=== PATIENT | female | born 1990 | race Caucasian/White ===

== ENCOUNTER 2019-01-26 17:17 | Emergency (ER) | payer SELFPAY ==
--- NOTE | 2019-01-26 18:46 | ER Document Report ---
Addendum entered and electronically signed by JANNIE OVIEDO PA-C 01/26/19 18:48: ED Medical Screen (RME) - General Chief Complaint: Flank Pain Stated Complaint: FLANK PAIN Time Seen by Provider: 01/26/19 18:31 Primary Care Provider: TU PICHARDO [Primary Care Provider] - Follow up as needed Notes: Patient has had 8-10 episodes of diarrhea today, initially they were bloody but they are no longer bloody. TRAVEL OUTSIDE OF THE [place] IN LAST 30 DAYS: No - Related Data Allergies/Adverse Reactions: No Known Allergies Allergy (Verified 01/26/19 17:19) Original Note: ED Medical Screen (RME) - General Chief Complaint: Flank Pain Stated Complaint: FLANK PAIN Time Seen by Provider: 01/26/19 18:31 Primary Care Provider: TU PICHARDO [Primary Care Provider] - Follow up as needed Notes: 20-year-old female diagnosed with ulcerative colitis 2 years ago presents to the emergency department for which she thinks is a flareup. She complains of severe right sided pain, nausea, diarrhea that started today. She called her primary doctor at 4 PM today come to the emergency department. She denies fevers, chills, vomiting. EXAM: Lungs clear to auscultation bilaterally; regular rate and rhythm no murmur I have greeted and performed a rapid initial assessment of this patient. A comprehensive ED assessment and evaluation of the patient, analysis of test results and completion of medical decision making process will be conducted by an additional ED providers. TRAVEL OUTSIDE OF THE [place] IN LAST 30 DAYS: No - Related Data Allergies/Adverse Reactions: No Known Allergies Allergy (Verified 01/26/19 17:19) Past Medical History - Social History Chew tobacco use (# tins/day): No Drug Abuse: None Renal/ Medical History: Denies: Hx Peritoneal Dialysis - Immunizations Hx Diphtheria, Pertussis, Tetanus Vaccination: No Physical Exam - Vital signs Vitals: Temp Pulse Resp BP Pulse Ox 99.4 F 86 18 119/62 99 01/26/19 17:33 01/26/19 17:33 01/26/19 17:33 01/26/19 17:33 01/26/19 17:33 Course - Vital Signs Vital signs: Temp Pulse Resp BP Pulse Ox 99.4 F 86 18 119/62 99 01/26/19 17:33 01/26/19 17:33 01/26/19 17:33 01/26/19 17:33 01/26/19 17:33 Doctor's Discharge - Discharge Referrals: KYLEE,NO [Primary Care Provider] - Follow up as needed
[2019-01-26] MEDS ORDERED: ONDANSETRON HCL INJ/PF 4 MG/2 ML SDV IV ONE (19:10)
[2019-01-26] MEDS ORDERED: NORMAL SALINE 1000 ML 1,000 ML IV ONE (19:10)
[2019-01-26] MEDS ORDERED: HYDROCODONE/ACETAMINOPHEN 5-325 MG TABLET PO ONE (20:00)
[2019-01-26 20:33] LABS: ABSOLUTE EOSINOPHILS # (AUTO) 0.1 10^3/uL (0.0-0.6); ABSOLUTE LYMPHOCYTES (AUTO) 1.1 10^3/uL (0.5-4.7); ABSOLUTE MONOCYTES (AUTO) 0.6 10^3/uL (0.1-1.4); ABSOLUTE NEUT (AUTO) 9.3 10^3/uL (1.7-8.2); BASOPHILS % (AUTO) 0.2 % (0-2); EOSINOPHILS % (AUTO) 0.5 % (0-6); HEMATOCRIT 34.5 % (36.0-47.0); HEMOGLOBIN 11.1 g/dL (12.0-15.5); LYMPHOCYTES % (AUTO) 10.2 % (13-45); MEAN CORPUSCULAR HEMOGLOBIN 24.9 pg (27.0-33.4); MEAN CORPUSCULAR HGB CONC 32.2 g/dL (32.0-36.0); MEAN CORPUSCULAR VOLUME 77 fl (80-97); PLATELET COUNT 453 10^3/uL (150-450); RED BLOOD COUNT 4.47 10^6/uL (3.72-5.28); RED CELL DISTRIBUTION WIDTH 15.6 % (11.5-14.0); SEGMENTED NEUTROPHILS % (AUTO) 84.1 % (42-78); TOTAL CELLS COUNTED % (AUTO) 100 %; WHITE BLOOD COUNT 11.1 10^3/uL (4.0-10.5)
[2019-01-26 20:52] LABS: APPEARANCE,URINE CLOUDY; BILIRUBIN,URINE NEGATIVE (NEGATIVE); GLUCOSE, URINE NEGATIVE (NEGATIVE); KETONES,URINE 20 mg/dL (NEGATIVE); LEUKOCYTE ESTERASE,URINE LARGE (NEGATIVE); NITRITE,URINE NEGATIVE (NEGATIVE); PROTEIN,URINE >=500 mg/dL (NEGATIVE); URINE SPECIFIC GRAVITY 1.018; UROBILINOGEN,URINE NEGATIVE mg/dL (<2.0)
[2019-01-26 20:54] LABS: COLOR,URINE DARK YELLOW
[2019-01-26 20:55] LABS: ALANINE AMINOTRANSFERASE 25 U/L (9-52); ALBUMIN 3.7 g/dL (3.5-5.0); ALKALINE PHOSPHATASE 85 U/L (38-126); ANION GAP 12 (5-19); ASPARTATE AMINO TRANSFERASE 13 U/L (14-36); BILIRUBIN,DIRECT 0.2 mg/dL (0.0-0.4); BILIRUBIN,TOTAL 0.8 mg/dL (0.2-1.3); BLOOD UREA NITROGEN 8 mg/dL (7-20); CALCIUM 9.4 mg/dL (8.4-10.2); CARBON DIOXIDE 26 mmol/L (22-30); CHLORIDE 102 mmol/L (98-107); GLUCOSE 78 mg/dL (75-110); POTASSIUM 4.3 mmol/L (3.6-5.0); SODIUM 139.5 mmol/L (137-145); TOTAL PROTEIN 6.9 g/dL (6.3-8.2)
[2019-01-27] MEDS ORDERED: CEFTRIAXONE INJ 1000 MG VIAL IV ONE (00:29)
[2019-01-27] MEDS ORDERED: KETOROLAC TROMETHAMINE INJ/PF 30 MG/1 ML SDV IV ONE (00:29)
--- NOTE | 2019-01-27 00:30 | ER Document Report ---
ED General - General Chief Complaint: Flank Pain Stated Complaint: FLANK PAIN Time Seen by Provider: 01/26/19 18:31 Primary Care Provider: TU PICHARDO [NO LOCAL MD] - Follow up as needed Notes: Patient is a 28-year-old female with a past medical history of ulcerative colitis who presents with approximately 24 hours of right flank pain. Patient states the pain started gradually, is a throbbing, aching, constant discomfort. Nothing improves or worsens the discomfort. Uncertain of whether or not she has had similar symptoms in the past. Regards them as being moderate to severe. Notes associated nausea and one episode of vomiting here in the emergency department. Has had ongoing diarrhea on a daily basis the past several weeks states this is not new or different today. Has not had fever. Contacted her GI doctor regarding her right upper abdominal pain and right flank pain and was instructed to come to the emergency room for further assessment. No history of abdominal surgeries. TRAVEL OUTSIDE OF THE [place] IN LAST 30 DAYS: No - Related Data Allergies/Adverse Reactions: No Known Allergies Allergy (Verified 01/26/19 17:19) Past Medical History - General Information source: Patient - Social History Smoking Status: Former Smoker Chew tobacco use (# tins/day): No Frequency of alcohol use: None Drug Abuse: None Lives with: Family Family History: Reviewed & Not Pertinent Patient has suicidal ideation: No Patient has homicidal ideation: No Renal/ Medical History: Denies: Hx Peritoneal Dialysis - Immunizations Hx Diphtheria, Pertussis, Tetanus Vaccination: No Review of Systems - Review of Systems Notes: Constitutional: Negative for fever. HENT: Negative for sore throat. Eyes: Negative for visual changes. Cardiovascular: Negative for chest pain. Respiratory: Negative for shortness of breath. Gastrointestinal: Positive for abdominal and flank pain, positive for vomiting Genitourinary: Negative for dysuria. Musculoskeletal: Negative for back pain. Skin: Negative for rash. Neurological: Negative for headaches, weakness or numbness. 10 point ROS negative except as marked above and in HPI. Physical Exam - Vital signs Vitals: Temp Pulse Resp BP Pulse Ox 99.4 F 86 18 119/62 99 01/26/19 17:33 01/26/19 17:33 01/26/19 17:33 01/26/19 17:33 01/26/19 17:33 Interpretation: Normal Notes: PHYSICAL EXAMINATION: GENERAL: Well-appearing, well-nourished and in no acute distress. HEAD: Atraumatic, normocephalic. EYES: Pupils equal round and reactive to light, extraocular movements intact, sclera anicteric, conjunctiva are normal. ENT: nares patent, oropharynx clear without exudates. Moist mucous membranes. NECK: Normal range of motion, supple without lymphadenopathy LUNGS: Breath sounds clear to auscultation bilaterally and equal. No wheezes rales or rhonchi. HEART: Regular rate and rhythm without murmurs ABDOMEN: Soft, right CVA tenderness, nontender, normoactive bowel sounds. No guarding, no rebound. No masses appreciated. EXTREMITIES: Normal range of motion, no pitting or edema. No cyanosis. NEUROLOGICAL: No focal neurological deficits. Moves all extremities spontaneously and on command. PSYCH: Normal mood, normal affect. SKIN: Warm, Dry, normal turgor, no rashes or lesions noted. Course - Re-evaluation Re-evalutation: 01/27/19 00:28 Presentation is most consistent with acute pyelonephritis. Laboratories do demonstrate a large amount of white blood cells in the urine as well as bacteria. Patient has had nausea as well as vomiting. CVA tenderness is present on exam on the right. History and exam are not consistent with an infected stone. Patient has no localized abdominal tenderness. Contrary to triage assessment patient is very clear to state that her diarrhea including component of blood in the diarrhea is not new or different and that she is currently in the care of the GI doctor in regards to this diarrhea is related to ulcerative colitis. The remainder laboratories are relatively unremarkable without evidence of renal dysfunction. I do not suspect an acute appendicitis, biliary pathology, pancreatitis, intra-abdominal abscess, or tubo-ovarian abscess based on history and examination. Patient has been given a dose of IV ceftriaxone and a liter of fluids. Patient is able to tolerate oral intake without difficulty. Will be discharged home on 7 day course of cephalexin. A urine culture has been sent. At this time will discharge with return precautions and follow-up recommendations. Verbal discharge instructions given a the bedside and opportunity for questions given. Medication warnings reviewed. Patient is in agreement with this plan and has verbalized understanding of return precautions and the need for primary care follow-up in the next 24-72 hours. - Vital Signs Vital signs: Temp Pulse Resp BP Pulse Ox 98.2 F 96 18 124/76 97 01/27/19 01:15 01/27/19 01:15 01/26/19 17:33 01/27/19 01:15 01/27/19 01:15 - Laboratory Result Diagrams: 01/26/19 19:55 01/26/19 19:55 Laboratory results interpreted by me: 01/26/19 01/26/19 01/26/19 19:55 19:55 19:55 WBC 11.1 H Hgb 11.1 L Hct 34.5 L MCV 77 L MCH 24.9 L RDW 15.6 H Plt Count 453 H Seg Neutrophils % 84.1 H Lymphocytes % 10.2 L Absolute Neutrophils 9.3 H AST 13 L Urine Protein >=500 H Urine Ketones 20 H Urine Blood MODERATE H Ur Leukocyte Esterase LARGE H Discharge - Discharge Clinical Impression: Right flank pain, Pyelonephritis Condition: Good Disposition: HOME, SELF-CARE Additional Instructions: You have been diagnosed with a condition called pyelonephritis which is an infection involving your kidneys and bladder. You have been given a dose of antibiotics here in the emergency department to help begin to treat this infection. Your also being sent home on antibiotics. Please start taking these later on today when you fill the prescription. Complete the course even if you feel better. Please return if you have persistent vomiting, pass out, have worsening pain, become unable to tolerate fluids, or have any other symptoms that are concerning to you. Please follow-up with your primary care physician in the next 24-48 hours. Prescriptions: Cephalexin Monohydrate [Keflex 500 mg Capsule] 500 mg PO Q6H 7 Days capsule Referrals: LOCAL,NO [NO LOCAL MD] - Follow up as needed
[2019-01-27 01:18] VITALS: BP 124/76
== END 2019-01-27 01:18 | disposition home or self-care (01) ==
LOC: ER 17:17
DX: N12 Tubulo-interstitial nephritis, not specified as acute or chronic (principal); K51.90 Ulcerative colitis, unspecified, without complications; R19.7 Diarrhea, unspecified; K92.1 Melena; R11.2 Nausea with vomiting, unspecified; Z87.891 Personal history of nicotine dependence; Z87.19 Personal history of other diseases of the digestive system
CPT/HCPCS: 36415; 85025; 81025; 80053; 81001; J1885; J0696; J2405; J7030